=== PATIENT | male | born 1960 | race Caucasian/White ===

== ENCOUNTER 2019-05-02 11:52 | Inpatient (IN) | payer OTHER ==
[2019-05-02 12:33] VITALS: BMI 29.2
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
[2019-05-02] MEDS ORDERED: IBUPROFEN 400 MG TABLET (FP) PO PRN (18:35)
[2019-05-02] MEDS ORDERED: MAGNESIUM HYDROX 2400MG/30ML ORAL SUSPENSION 30 ML CUP PO PRN (18:35)
[2019-05-02] MEDS ORDERED: ACETAMINOPHEN 325 MG TABLET (FP) PO PRN (18:35)
[2019-05-02] MEDS ORDERED: MAG HYDROX/AL HYDROX/SIMETH 30 ML UNIT-DOSE CUP PO PRN (18:35)
[2019-05-02] MEDS ORDERED: hydrOXYzine PAMOATE 25 MG CAPSULE (FP) PO PRN (18:35)
[2019-05-02] MEDS ORDERED: BISMUTH SUBSALICYLATE 524 MG/30 ML UD PO PRN (18:35)
[2019-05-02] MEDS ORDERED: MENTHOL/PHENOL 1 EACH UD MM PRN (18:35)
[2019-05-02] MEDS ORDERED: MAGNESIUM CITRATE 300 ML BOTTLE PO PRN (18:35)
[2019-05-02] MEDS: NIFEdipine E.R. 30 MG TABLET PO SCH (19:57)
[2019-05-02] MEDS: diazePAM 5 MG TABLET PO PRN (20:00)
[2019-05-02] MEDS: NAPROXEN 500 MG TABLET PO PRN (20:07)
[2019-05-02] MEDS: diazePAM 5 MG TABLET PO SCH (22:18)
[2019-05-02] MEDS: THIAMINE HCL 100 MG TABLET (FP) PO SCH (22:18)
[2019-05-02] MEDS: MELATONIN 5 MG TABLETS PO PRN (22:19)
[2019-05-02] MEDS: ALLOPURINOL 300 MG TABLET (FP) PO SCH (23:10)
[2019-05-03] MEDS: diazePAM 5 MG TABLET PO SCH ×3 (05:39→22:11)
[2019-05-03] MEDS: PRENATAL VITAMINS W/ FOLIC ACID TABLET (FP) PO SCH (10:24)
[2019-05-03] MEDS: ALLOPURINOL 300 MG TABLET (FP) PO SCH (10:24)
[2019-05-03] MEDS: NIFEdipine E.R. 30 MG TABLET PO SCH (10:24)
[2019-05-03] MEDS: FUROSEMIDE 20 MG TABLET (FP) PO SCH (10:26)
[2019-05-03] MEDS: ACETAMINOPHEN 325 MG TABLET (FP) PO PRN (10:27)
--- NOTE | 2019-05-03 10:35 | PN ---
S CIWA - CIWA Score Nausea/Vomitin-No Nausea/No Vomiting Muscle Tremors: 2 Anxiety: 3 Agitation: 0-Normal Activity Paroxysmal Sweats: 3 Orientation: 0-Oriented Tacttile Disturbances: 0-None Auditory Disturbances: 0-None Visual Disturbances: 0-None Headache: 2-Mild CIWA-Ar Total Score: 10 BHS Progress Note (SOAP) Subjective: c/o sweats, shakes, anxiety, and headache. Objective: 05/03/19 10:33 Vital Signs 05/03/19 05/03/19 05/03/19 03:30 06:17 07:22 Temperature 96.6 F L 98.6 F Pulse Rate 83 108 H Respiratory 18 18 18 Rate Blood Pressure 178/91 H 139/85 05/03/19 09:04 Temperature 97.3 F L Pulse Rate 96 H Respiratory 16 Rate Blood Pressure 140/88 Labs pending. Assessment: 05/03/19 10:35 AOX3, in no acute respiratory distress. Full ROM, ambulating in the unit. Withdrawal symptoms. Plan: continue detox.
[2019-05-03] MEDS: THIAMINE HCL 100 MG TABLET (FP) PO SCH (22:11)
[2019-05-03] MEDS: MELATONIN 5 MG TABLETS PO PRN (22:11)
[2019-05-04] MEDS: diazePAM 5 MG TABLET PO SCH ×2 (05:12→18:04)
[2019-05-04] MEDS: NAPROXEN 500 MG TABLET PO PRN ×2 (05:13→22:19)
[2019-05-04] MEDS: diazePAM 5 MG TABLET PO PRN (08:48)
[2019-05-04] MEDS: ALLOPURINOL 300 MG TABLET (FP) PO SCH (10:05)
[2019-05-04] MEDS: PRENATAL VITAMINS W/ FOLIC ACID TABLET (FP) PO SCH (10:05)
[2019-05-04] MEDS: FUROSEMIDE 20 MG TABLET (FP) PO SCH (10:05)
[2019-05-04] MEDS: NIFEdipine E.R. 30 MG TABLET PO SCH (10:05)
[2019-05-04] MEDS: ACETAMINOPHEN 325 MG TABLET (FP) PO PRN ×2 (10:06→18:05)
--- NOTE | 2019-05-04 11:29 | PN ---
[facility] CIWA - CIWA Score Nausea/Vomitin-No Nausea/No Vomiting Muscle Tremors: 1-None Visible, but [place] Anxiety: 2 Agitation: 1-Slight > Activity Paroxysmal Sweats: 1-Minimal Palms Moist Orientation: 0-Oriented Tacttile Disturbances: 0-None Auditory Disturbances: 0-None Visual Disturbances: 0-None Headache: 0-None Present CIWA-Ar Total Score: 5 BHS Progress Note (SOAP) Subjective: 58 years old male admitted on 05/02/19 for alcohol withdrawal sx management treating with valium detox regimen feeling better today slept through the night less anxiety mild treamir ambulating with cane steady gait long history of hypertension begin metoprolol Objective: 05/04/19 11:28 Vital Signs Temperature 99.2 F 05/04/19 09:18 Pulse Rate 98 H 05/04/19 09:18 Respiratory Rate 20 05/04/19 09:18 Blood Pressure 143/88 05/04/19 09:18 O2 Sat by Pulse Oximetry (%) 05/04/19 11:30 lab see 05/02/19 ER report bun elevation encourage oral fluid Assessment: 05/04/19 11:30 alcohol withdrawal 05/04/19 11:30 hypertension Plan: valium regimen metoprolol 25mg po bid
[2019-05-04] MEDS: METOPROLOL TARTRATE 25 MG TABLET (FP) PO SCH ×2 (13:38→22:19)
[2019-05-04] MEDS: THIAMINE HCL 100 MG TABLET (FP) PO SCH (22:19)
[2019-05-04] MEDS: MELATONIN 5 MG TABLETS PO PRN (22:19)
[2019-05-05] MEDS: ACETAMINOPHEN 325 MG TABLET (FP) PO PRN (04:51)
[2019-05-05] MEDS ORDERED: diazePAM 5 MG TABLET PO ONE (06:00)
[2019-05-05 09:22] VITALS: BP 150/91; PULSE 99; TEMP 95.7
--- NOTE | 2019-05-05 09:53 | DS ---
[facility] Detox Discharge Summary Admission Date: 05/02/19 Discharge Date: 05/05/19 - History Present History: Alcohol Dependence Additional Comments: 58 years old male admitted on 05/02/19 for alcohol withdrawal sx management treated with valium detox regimen patient has completed valium regimen and tolerated wall alert oriented x 3 ambulating with cane steady gait respiratory clear lungs bilaterally on auscultation abdomen soft no rebound tenderness skin warm and dry Pertinent Past History: patient reports that he has to go home for some unfinished business patient states that he will return to [facility] - Physical Exam Results Vital Signs: Vital Signs Temperature 95.7 F L 05/05/19 09:21 Pulse Rate 99 H 05/05/19 09:21 Respiratory Rate 16 05/05/19 09:21 Blood Pressure 150/91 05/05/19 09:21 O2 Sat by Pulse Oximetry (%) Pertinent Admission Physical Exam Findings: alcohol withdrawal Vital Signs Temperature 95.7 F L 05/05/19 09:21 Pulse Rate 99 H 05/05/19 09:21 Respiratory Rate 16 05/05/19 09:21 Blood Pressure 150/91 05/05/19 09:21 O2 Sat by Pulse Oximetry (%) Laboratory Last Values RPR Titer Nonreactive (NONREACTIVE) 05/03/19 05:40 lab seen 05/02/19 results long history of hypertension received lasix metoprolol and nifedipine patient will return to primary care [facility] for medications and dosages modification - Treatment Hospital Course: Detox Protocol Followed, Detoxed Safely, Responded well, Discharged Condition Good, Rehab Referral Accepted Patient has Accepted a Rehab Referral to: [facility] - Medication Discharge Medications: Ambulatory Orders Allopurinol [Zyloprim -] 300 mg PO DAILY 05/02/19 Colchicine [Colcrys] 0.6 mg PO DAILY 05/02/19 Metoprolol Tartrate [Lopressor -] 25 mg PO BID 05/02/19 Naproxen [Naprosyn -] 550 mg PO BID PRN 05/02/19 Nifedipine ER [Procardia XL -] 30 mg PO DAILY 05/02/19 - Diagnosis (1) Hypertension Status: Chronic Qualifiers: Hypertension type: essential hypertension Qualified Code(s): I10 - Essential (primary) hypertension (2) Gout Status: Chronic Qualifiers: Gout site: unspecified site Gout etiology: unspecified cause Chronicity: chronic Presence of tophus: without tophus Qualified Code(s): M1A.9XX0 - Chronic gout, unspecified, without tophus (tophi) (3) Alcohol dependence, uncomplicated Status: Acute - AMA Did Patient Leave Against Medical Advice: No CIWA Score - CIWA Score Nausea/Vomitin-No Nausea/No Vomiting Muscle Tremors: 1-None Visible, but [place] Anxiety: 1-Mildly Anxious Agitation: 0-Normal Activity Paroxysmal Sweats: No Perspiration Orientation: 0-Oriented Tacttile Disturbances: 0-None Auditory Disturbances: 0-None Visual Disturbances: 0-None Headache: 0-None Present CIWA-Ar Total Score: 2
== END 2019-05-05 09:58 | disposition home or self-care (01) | DRG 897 ==
LOC: YASAS 11:52 → Y3N 19:04
PROVIDERS: ADMIT Allergy & Immunology; ATTEND Allergy & Immunology
PROC: HZ2ZZZZ Detoxification Services for Substance Abuse Treatment (ICD-10-PCS; principal; 2019-05-02)
DX: F10.230 Alcohol dependence with withdrawal, uncomplicated (principal); I10 Essential (primary) hypertension; M1A.9XX0 Chronic gout, unspecified, without tophus (tophi)
CPT/HCPCS: 36415; 86593

== ENCOUNTER 2019-05-02 15:52 | Emergency (ER) | payer OTHER ==
[2019-05-02 16:03] VITALS: BMI 28.7
--- NOTE | 2019-05-02 16:18 | PDOC ---
History of Present Illness - General Chief Complaint: Edema Stated Complaint: PEDAL EDEMA - History of Present Illness Initial Comments: The pt is a 58M w/ a history of gout (allopurinol), HTN, EtOH abuse who presents for evaluation of 3-4 weeks of BLE swelling. The pt reports he was on a diuretic that he quit taking approximately 4 weeks ago because he was unable to afford the medication. He does not recall the medication name. He has been able to ambulate since that time. Denies fevers, chest pain, trouble breathing, palpitations, history of DVT/PE. Pt uses [facility] -Per the pharmacy pt is supposed to take Lasix 20mg daily 05/02/19 16:31 Past History - Past Medical History Allergies/Adverse Reactions: Allergies Allergy/AdvReac Type Severity Reaction Status Date / Time No Known Allergies Allergy Verified 05/02/19 16:00 Home Medications: Ambulatory Orders Allopurinol [Zyloprim -] 300 mg PO DAILY 05/02/19 Colchicine [Colcrys] 0.6 mg PO DAILY 05/02/19 Metoprolol Tartrate [Lopressor -] 25 mg PO BID 05/02/19 Naproxen [Naprosyn -] 550 mg PO BID PRN 05/02/19 Nifedipine ER [Procardia XL -] 30 mg PO DAILY 05/02/19 COPD: No Other medical history: alcohol abue - Surgical History Cholecystectomy: No - Psycho Social/Smoking Cessation Hx Smoking History: Never smoked Review of Systems - Review of Systems Able to Perform ROS?: Yes Comments:: GENERAL/CONSTITUTIONAL: No fever or chills. No weakness HEAD, EYES, EARS, NOSE AND THROAT: No change in vision. No change in hearing. No sore throat CARDIOVASCULAR: No chest pain or shortness of breath RESPIRATORY: Denies cough, hemoptysis GASTROINTESTINAL: No nausea, vomiting, diarrhea or constipation GENITOURINARY: No dysuria, frequency, or change in urination MUSCULOSKELETAL: +chronic b/l hip and back pain SKIN: No rash NEUROLOGIC: No headache, vertigo, loss of consciousness, or change in strength/ sensation ENDOCRINE: No increased thirst. No abnormal weight change HEMATOLOGIC/LYMPHATIC: No anemia, easy bleeding, or history of blood clots ALLERGIC/IMMUNOLOGIC: No hives or skin allergy 05/02/19 16:18 Is the patient limited [place] proficient: No *Physical Exam - Vital Signs Last Vital Signs Temp Pulse Resp BP Pulse Ox 97 F L 78 16 163/90 100 05/02/19 16:00 05/02/19 16:00 05/02/19 16:00 05/02/19 16:00 05/02/19 16:00 - Physical Exam GENERAL: Awake, alert, and oriented to person/place/time, in no acute distress HEAD: No signs of trauma, normoc ephalic, atraumatic EYES: PERRLA, EOMI, sclera anicteric, conjunctiva clear ENT: Hearing grossly normal, nares patent, oropharynx clear without exudates. Moist mucosa LUNGS: No distress, speaks in full sentences, clear to auscultation bilaterally HEART: Regular rate and rhythm, normal S1 and S2, no murmurs appreciated, peripheral pulses normal and equal bilaterally ABDOMEN: Soft, nontender, normoactive bowel sounds. No guarding, no rebound EXTREMITIES: moves all extremities spontaneously, 1+ BLE edema to mid rodas w/o erythema/warmth/tenderness NEUROLOGICAL: Cranial nerves II through XII grossly intact. Normal speech, no focal sensorimotor deficits SKIN: Warm, Dry 05/02/19 16:18 ED Treatment Course - LABORATORY CBC & Chemistry Diagram: 05/02/19 16:43 05/02/19 16:43 Medical Decision Making - Medical Decision Making The pt is a 58M w/ a history of gout (allopurinol), HTN, EtOH abuse who presents for evaluation of 3-4 weeks of BLE swelling likely 2/2 hypervolemia from not taking his prescribed meds ED Course Not likely DVT given b/l swelling Legs not warm or tender, not likely cellulitis Swelling likely 2/2 volume overload as pt has not been able to take his Lasix Will give Lasix 20mg PO CMP, CBC, BNP sent 05/02/19 16:36 Labs unremarkable Plan for D/C to PC Transport arranged Discharge - Discharge Information Problems reviewed: Yes Clinical Impression/Diagnosis: Leg swelling Disposition: HOME - Admission No - Follow up/Referral Referrals: [facility] [place] [facility] [Provider Group] - Patient Discharge Instructions Patient Printed Discharge Instructions: DI for Dependent Edema Additional Instructions: You were seen in the Emergency Department for evaluation of leg edema. It is likely due to not taking your Lasix. The water pill you should be taking is Lasix 20mg daily. Review the handout provided at discharge. Follow up with your primary care doctor in a week. Return to the Emergency Department if you develop fevers, chest pain, trouble breathing, worsening symptoms, or any new/concerning symptoms. - Post Discharge Activity
[2019-05-02] MEDS ORDERED: FUROSEMIDE 20 MG TABLET (FP) PO ONE (16:37)
--- NOTE | 2019-05-02 16:37 | PDOC ---
Attending Attestation - Resident Resident Name: Yuan Mello - ED Attending Attestation I have performed the following: I have examined & evaluated the patient, The case was reviewed & discussed with the resident, I agree w/resident's findings & plan, Exceptions are as noted - HPI HPI: 05/02/19 16:34 58 M with h/o ETOH abuse presenting to ED with BLE edema. Pt states that he ran out of his diuretic 2 weeks ago. Since then, he has been having progressively worsening bilateral ankle edema. Denies any CP/SOB. Denies any redness or pain to either leg. No asymmetric swelling. No recent travel/immobilization. No h/o DVT/PE. - Physicial Exam PE: 05/02/19 16:35 "GENERAL: Awake, alert, and fully oriented, in no acute distress. HEAD: No signs of trauma EYES: PERRLA, EOMI, sclera anicteric, conjunctiva clear ENT: Auricles normal inspection, hearing grossly normal, nares patent, oropharynx clear without exudates. Moist mucosa NECK: Nontender, no stepoffs, Normal ROM, supple, no lymphadenopathy, JVD, or masses LUNGS: Breath sounds equal, clear to auscultation bilaterally. No wheezes, and no crackles HEART: Regular rate and rhythm, normal S1 and S2, no murmurs, rubs or gallops ABDOMEN: Soft, nontender, normoactive bowel sounds. No guarding, no rebound. No masses EXTREMITIES: + 1+ PE BLE, No clubbing or cyanosis. No cords, erythema, or tenderness NEUROLOGICAL: Cranial nerves II through XII intact. 5/5 strength and sensation in all extremities, Normal speech, normal gait, normal cerebellar function SKIN: Warm, Dry, normal turgor, no rashes or lesions noted. - Medical Decision Making 05/02/19 16:35 58 M with bilateral ankle edema, likely 2/2 med noncompliance. Confirmed with pt 's pharmacy ([email or web address]) that he takes Lasix 20mg daily. Pt without any other signs of volume overload, no evidence of pulmonary edema on exam. Clinically inconsistent with DVT, as swelling is symmetric. No evidence of cellulitis. - Labs - Lasix 20mg PO 05/02/19 17:59 Labs unremarkable Will DC back to [facility] and restart home lasix Pt is well appearing, with normal vitals. Clinically stable for DC at this time. I discussed the physical exam findings, ancillary test results and final diagnoses with the patient. I answered all of the patient's questions. The patient was satisfied with the care received and felt comfortable with the discharge plan and treatment plan. The patient agrees to follow up with the primary care physician within 24-72 hours.
[2019-05-02] MEDS ORDERED: FUROSEMIDE 40 MG TABLET (FP) ONE (16:47)
[2019-05-02 17:37] LABS: EOS % 4.9 % (0-4.5); HEMATOCRIT 33.3 % (35.4-49); HEMOGLOBIN 11.1 GM/dL (11.7-16.9); LYMPH % 28.5 % (8-40); MCH 35.9 pg (25.7-33.7); MCHC 33.3 g/dl (32.0-35.9); MEAN CELL VOLUME 107.8 fl (80-96); MEAN PLT VOLUME 8.2 fl (7.5-11.1); MONO % 8.7 % (3.8-10.2); NEUT % 56.9 % (42.8-82.8); PLATELET COUNT 195 K/MM3 (134-434); RBC 3.09 M/mm3 (4.00-5.60); RDW 13.4 % (11.9-15.9); WHITE BLOOD COUNT 6.5 K/mm3 (4.0-10.0)
[2019-05-02 17:48] LABS: ALBUMIN 3.4 g/dl (3.4-5.0); BILIRUBIN,TOTAL 0.4 mg/dL (0.2-1); BLOOD UREA NITROGEN 28.8 mg/dL (7-18); CALCIUM 8.4 mg/dL (8.5-10.1); CREATININE 1.5 mg/dL (0.55-1.3); POTASSIUM 3.5 mmol/L (3.5-5.1); TOT PROT 6.2 g/dl (6.4-8.2)
[2019-05-02 18:13] LABS: MACROCYTOSIS 2+
[2019-05-02 18:19] VITALS: BP 154/79; PULSE 89; TEMP 98
== END 2019-05-02 18:20 | disposition home or self-care (01) ==
LOC: JER 15:52
DX: R60.0 Localized edema (principal); Z91.14 Patient's other noncompliance with medication regimen; F10.20 Alcohol dependence, uncomplicated
CPT/HCPCS: 36415; 80053; 83880; 85025; 99283-25